=== PATIENT | male | born 1960 | race Caucasian/White ===

== ENCOUNTER → 2020-10-22 | Outpatient (RCR) | payer BC | END | disposition home or self-care (01) | LOC: WSPT → WSC 10-05 10:45 → WSPT 10-10 09:00 | DX: Z96.651 Presence of right artificial knee joint (principal) | CPT/HCPCS: G0283-GP ==

== ENCOUNTER 2020-11-26 09:45 | Outpatient (RCR) | payer BC | END 2021-01-22 | disposition still patient (30) | LOC: WSPT | DX: Z96.651 Presence of right artificial knee joint (principal) ==

== ENCOUNTER 2024-05-08 14:58 | Emergency (ER) | payer BC ==
[~2024-05-08] VITALS: Ht 177.8 cm; Wt 120.5 kg
[2024-05-08 15:03] VITALS: TEMP 97.6
[2024-05-08] MEDS ORDERED: LR 1,000 ML IV ONE (15:30)
[2024-05-08 16:00] LABS: BASO # 0.1 K/mm3 (0.0-0.2); BASO % 0.9 % (0.0-2.0); EOS # 0.2 K/mm3 (0.0-0.7); EOS % 2.5 % (0.0-4.0); GRAN # 4.6 K/mm3 (1.4-6.5); GRAN % 53.2 % (42.2-75.2); HEMATOCRIT 47.3 % (42.0-52.0); HEMOGLOBIN 15.4 g/dl (13.5-18.0); LYMPH % 34.3 % (20.0-51.0); MEAN CELL VOLUME 100 fl (80.0-100.0); MEAN CORPUSCULAR HEMOGLOBIN 33 pg (27-31); MEAN CORPUSCULAR HGB CONC 33 g/dl (33.0-37.0); MEAN PLATELET VOLUME 9.8 fl (7.4-10.4); MONO # 0.8 K/mm3 (0.1-0.6); MONO % 8.9 % (1.7-9.3); PLATELET COUNT 215 K/mm3 (130-400); RED BLOOD COUNT 4.73 M/mm3 (4.20-5.60); REDCELL DISTRIBUTION WIDTH-CV 13.2 % (11.5-14.5)
[2024-05-08 16:15] LABS: ALBUMIN 3.9 g/dL (3.4-4.8); C-REACTIVE PROTEIN 0.61 mg/dL (0.00-0.50); CALCIUM 9.5 mg/dL (8.4-10.2); CREATININE, serum 1.08 mg/dL (0.72-1.25); POTASSIUM 4.1 mEq/L (3.5-4.5); TOTAL PROTEIN 7.6 g/dl (6.2-8.1)
[2024-05-08 16:50] LABS: PH 5.5 (5.0-8.5); URINE APPEARANCE CLEAR (CLEAR/HAZY); URINE BLOOD NEGATIVE (NEGATIVE); URINE COLOR YELLOW (YELLOW); URINE GLUCOSE NEGATIVE (NEGATIVE); URINE KETONE NEGATIVE (NEGATIVE); URINE NITRATE NEGATIVE (NEGATIVE); URINE PROTEIN(semi-quant) NEGATIVE (NEGATIVE); URINE UROBILINOGEN 0.2 E.U/dL (0.2-1.0)
[2024-05-08] MEDS ORDERED: Iohexol 300 - 100 ML VIAL IV ONE (16:50)
[2024-05-08] MEDS ORDERED: NS 100 ML IV SCH (16:52)
[2024-05-08 17:05] LABS: COLLECTION METHOD CLEAN CATCH
[2024-05-08] MEDS ORDERED: NORCO 325 MG-51 TAB PO (17:40)
[2024-05-08] MEDS ORDERED: Home HYDROcodone/Acetaminophen 5/325 MG #4 TABS/PACK PO ONE (17:45)
[2024-05-08 18:05] VITALS: BP 141/89; PULSE 61
== END 2024-05-08 18:10 | disposition home or self-care (01) ==
LOC: COL.ER 14:58
PROVIDERS: Family Medicine
DX: R10.31 Right lower quadrant pain (principal)
CPT/HCPCS: J7120; Q9967